=== PATIENT | male | born 1945 | race Caucasian/White ===

== ENCOUNTER 2022-06-23 10:17 | Outpatient (CLI) | payer MEDICARE, BC | END 2022-06-23 10:18 | disposition home or self-care (01) | LOC: CSHULT 10:17 | PROVIDERS: ATTEND Internal Medicine Cardiovascular Disease | DX: G45.9 Transient cerebral ischemic attack, unspecified (principal) | CPT/HCPCS: 93880 ==

== ENCOUNTER 2022-06-26 12:26 | Outpatient (CLI) | payer MEDICARE, BC ==
[~2022-06-26 12:26] MED LIST: Iopamidol 370 76% 100 ML VIAL ONE
== END 2022-06-26 12:27 | disposition home or self-care (01) ==
LOC: CSHCT 12:26
PROVIDERS: ATTEND Internal Medicine Cardiovascular Disease
DX: G45.9 Transient cerebral ischemic attack, unspecified (principal); I67.9 Cerebrovascular disease, unspecified; M47.812 Spondylosis without myelopathy or radiculopathy, cervical region
CPT/HCPCS: 70496; 70498

== ENCOUNTER 2022-06-27 12:32 | Outpatient (CLI) | payer MEDICARE, BC | END 2022-06-27 12:33 | disposition home or self-care (01) | LOC: CSHULT 12:32 | PROVIDERS: ATTEND Internal Medicine Cardiovascular Disease | DX: E04.1 Nontoxic single thyroid nodule (principal) | CPT/HCPCS: 76536 ==